=== PATIENT | female | born 1945 | race American Indian/Alaskan Native ===

== ENCOUNTER 2017-10-09 21:54 | Emergency (ER) | payer MEDICARE, OTHER ==
[2017-10-09 23:32] VITALS: BP 133/58
--- NOTE | 2017-10-10 00:19 | XRay Report ---
FINAL REPORT EXAM: XR KNEE BILAT 3V HISTORY: pain s/p GLF COMPARISON: None available. FINDINGS: Three views of each knee obtained. Moderate severe bilateral tricompartmental degenerative changes. There is severe narrowing of the medial joint space compartments bilaterally moderate severe narrowing of the patellofemoral joint spaces. Prominent marginal osteophyte. There is a vertical nondisplaced fracture through the posterior margin the tibial plateau of the right knee best seen on the lateral view. Prominent joint effusion. No other fracture identified. IMPRESSION: Vertical nondisplaced fracture through the posterior margin of the tibial plateau of the right knee best seen on the lateral view. No other acute fracture. Moderate to severe tricompartmental degenerative changes bilaterally.
--- NOTE | 2017-10-10 04:03 | Emergency Department Report ---
HPI - General Chief Complaint: Extremity Injury, Lower Time Seen by Provider: 10/10/17 03:54 - HPI HPI: Patient is a 72-year-old female who presents to ED completed of record.. Status post fall earlier today. Patient states she was walking her dog when her knee gave out and she fell and hit her knee on the ground. She denies any injuries to her hand or loss of consciousness at the incident. She states pain localized to her right anterior knee and noticed some swelling around the knee. ED Past Medical Hx - Past Medical History Previous Medical History?: Yes Hx Liver Disease: Yes (cirrhosis) - Surgical History Past Surgical History?: Yes Hx Cholecystectomy: Yes Additional Surgical History: hysterectomy ?year - Social History Smoking Status: Light Tobacco Smoker - Medications Home Medications: Home Medications Medication Instructions Recorded Confirmed Last Taken Type Acetaminophen [Tylenol Extra 500 mg PO Q6H #30 tablet 10/10/17 Unknown Rx Strength] Cyclobenzaprine [Flexeril] 10 mg PO QHS PRN #24 tablet 10/10/17 Unknown Rx ED Review of Systems ROS: Stated complaint: KNEE PAIN AND SWELLING Other details as noted in HPI Constitutional: denies: chills, fever Eyes: denies: eye pain, eye discharge, vision change ENT: denies: ear pain, throat pain Respiratory: denies: cough, shortness of breath, wheezing Cardiovascular: denies: chest pain, palpitations Endocrine: no symptoms reported Gastrointestinal: denies: abdominal pain, nausea, diarrhea Genitourinary: denies: urgency, dysuria, discharge Musculoskeletal: denies: back pain, joint swelling, arthralgia Skin: denies: rash, lesions Neurological: denies: headache, weakness, paresthesias Psychiatric: denies: anxiety, depression Hematological/Lymphatic: denies: easy bleeding, easy bruising Physical Exam - Physical Exam Vital Signs: Vital Signs 10/09/17 23:24 Temperature 98.3 F Pulse Rate 66 Respiratory 18 Rate Blood Pressure 133/58 O2 Sat by Pulse 96 Oximetry Physical Exam: GENERAL: Alert and oriented x3, no apparent distress, Normal Gait, atraumatic. HEAD: Head is normocephalic and a-traumatic. NECK: Supple. Non edematous, No carotid bruits. No lymphadenopathy or thyromegaly. No C-spine tenderness LUNGS: Symetrical with respiration, No wheezing, no rales or crackles, CTAB. HEART: S1, S2 present, regular rate and rhythm without murmur, no rubs, no gallops. Non tender to palpation . EXTREMITIES/MUSCULOSKELETAL: No cyanosis, clubbing, rash, lesions or edema. Full ROM bilaterally. UE/LE Pulses 2+ bilaterally. Right knee joint tender to palpation, mild swelling lateral aspect of the right knee, pain with flexion of the knee. No lacerations no bruising NEUROLOGIC: The patient is cooperative with no focal neurologic deficits. SKIN: Warm and dry, No lesions, No ulceration or induration present. ED Course Vital Signs 10/09/17 23:24 Temperature 98.3 F Pulse Rate 66 Respiratory 18 Rate Blood Pressure 133/58 O2 Sat by Pulse 96 Oximetry ED Medical Decision Making - Radiology Data Radiology results: report reviewed, image reviewed FINAL REPORT EXAM: XR KNEE BILAT 3V HISTORY: pain s/p GLF COMPARISON: None available. FINDINGS: Three views of each knee obtained. Moderate severe bilateral tricompartmental degenerative changes. There is severe narrowing of the medial joint space compartments bilaterally moderate severe narrowing of the patellofemoral joint spaces. Prominent marginal osteophyte. There is a vertical nondisplaced fracture through the posterior margin the tibial plateau of the right knee best seen on the lateral view. Prominent joint effusion. No other fracture identified. IMPRESSION: Vertical nondisplaced fracture through the posterior margin of the tibial plateau of the right knee best seen on the lateral view. No other acute fracture. Moderate to severe tricompartmental degenerative changes bilaterally. Transcribed By: LMDiann Dictated By: REJI HALL MD Electronically Authenticated By: REJI HALL MD Signed Date/Time: 10/10/17 0014 - Medical Decision Making 72-year-old female presents with the fracture. X-rays of the knee ordered. She reported above I discussed findings with the patient. I discussed the patient needs to follow-up with orthopedic doc Patient's knee was wrapped with [place] wrap and put in a knee immobilizer. Patient was sent with orthopedic referrals and told to follow-up Patient had no new deficit and understands all instructions given. Critical care attestation.: If time is entered above; I have spent that time in minutes in the direct care of this critically ill patient, excluding procedure time. ED Disposition Clinical Impression: Knee fracture, right Knee pain Qualifiers: Chronicity: acute Laterality: left Qualified Code(s): M25.562 - Pain in left knee Disposition: TO HOME OR SELFCARE Is pt being admited?: No Does the pt Need Aspirin: No Condition: Stable Instructions: Patellar Fracture (ED), Knee Pain (ED), Arthralgia (ED), Knee Immobilizer (ED) Additional Instructions: Make sure to follow up with the primary care physician as discussed. Take all your medications as you've been prescribed. If you have any worsening symptoms or develop new symptoms please return to ED immediately. Prescriptions: Cyclobenzaprine [Flexeril] 10 mg PO QHS PRN #24 tablet PRN Reason: Muscle Spasm Acetaminophen [Tylenol Extra Strength] 500 mg PO Q6H #30 tablet Referrals: PRIMARY CAREMD [Primary Care Provider] - 3-5 Days SARA CURTIS MD [Staff Physician] - 3-5 Days Forms: Accompanied Note Time of Disposition: 04:33
== END 2017-10-10 05:00 | disposition home or self-care (01) ==
LOC: ED 21:54
DX: S82.144A Nondisplaced bicondylar fracture of right tibia, initial encounter for closed fracture (principal); F17.200 Nicotine dependence, unspecified, uncomplicated; Z90.49 Acquired absence of other specified parts of digestive tract; Z90.710 Acquired absence of both cervix and uterus; W18.09XA Striking against other object with subsequent fall, initial encounter; Y93.K1 Activity, walking an animal; Y99.8 Other external cause status; Y92.89 Other specified places as the place of occurrence of the external cause